=== PATIENT | male | born 1935 | race Caucasian/White ===

== ENCOUNTER 2017-01-06 05:19 | Inpatient (IN) | payer OTHER ==
[~2017-01-06] VITALS: Ht 172.7 cm; Wt 89.5 kg
[~2017-01-06 05:19] MED LIST: NEURONTIN400 MG PO; NEURONTIN800 MG PO
[2017-01-06 06:12] VITALS: BP 136/75
[2017-01-06 06:30] LABS: HEMATOCRIT 41.4 % (38.0-50.0); MCH 28.6 PG (29.0-34.0); MCHC 32.9 G/DL (30.0-36.0); MCV 87.2 FL (86-99); MEAN PLAT.VOLUME 9.8 uM^3 (9.0-12.4); PLATELET COUNT 209 K/uL (156-360); RBC DIS.WIDTH-CV 13.3 % (11.8-14.6); RBC DIS.WIDTH-SD 42.6 % (39-53); RED BLOOD COUNT 4.75 M/uL (4.00-5.50); WHITE BLOOD COUNT 7.9 K/uL (4.1-10.2)
[2017-01-06 06:57] LABS: ANION GAP 5 MEQ/L (2-14); CHLORIDE 107 MEQ/L (99-109); POTASSIUM 4.3 MEQ/L (3.7-5.4); SAMPLE HEMOLYSIS CHECK 2; SAMPLE ICTERIC CHECK 0; SAMPLE LIPEMIA CHECK 0; SODIUM 140 MEQ/L (136-147)
[2017-01-06 07:03] LABS: GFR ESTIMATE (CALCULATED) > 59 mL/min/; GLUCOSE 103 mg/dL (70-99); UREA NITROGEN (BUN) 15 mg/dL (9-23)
[2017-01-06 17:17] VITALS: BP 132/74
[2017-01-06 20:11] VITALS: BP 128/67
[2017-01-06 23:28] VITALS: BP 119/68
[2017-01-07 03:38] VITALS: BP 117/64
[2017-01-07 07:50] VITALS: BP 134/63
[2017-01-07] MEDS ORDERED: CYCLOBENZAPRINE10 MG PO (08:20)
[2017-01-07] MEDS ORDERED: HYDROCODON-ACE1 EAC7 PO (08:20)
[2017-01-07 11:12] VITALS: BP 123/62
[2017-01-07 15:59] VITALS: BP 150/72
== END 2017-01-07 19:52 | disposition home or self-care (01) | DRG 471 ==
LOC: SDC 05:19 → ENRESERV 11:00 → 2SOUTH 11:04 → 3EAST 11:04 → ENRESERV 12:09 → 3EAST 12:28 → SDC 14:12 → 3EAST 01-07 19:52
PROVIDERS: Neurological Surgery
DX: M48.02 Spinal stenosis, cervical region (principal); M50.023 Cervical disc disorder at C6-C7 level with myelopathy; S14.157A Other incomplete lesion at C7 level of cervical spinal cord, initial encounter; W19.XXXA Unspecified fall, initial encounter; M50.123 Cervical disc disorder at C6-C7 level with radiculopathy; R26.2 Difficulty in walking, not elsewhere classified; Z87.891 Personal history of nicotine dependence
CPT/HCPCS: 72040; 76000; 80048; 85027; 93005; C1713; J0131; J0690; J1100; J1170; J1885; J2405; J2710; J2765; J3010; J3480